=== PATIENT | female | born 1990 | race African-American/Black ===

== ENCOUNTER 2016-10-16 13:30 | Emergency (ER) | payer OTHER ==
[~2016-10-16] VITALS: Ht 162.6 cm; Wt 90.7 kg
--- NOTE | ~2016-10-16 | US106 ---
[facility] A Service of [facility] & [facility] RADIOLOGY TEXT RESULTS PATIENT: BASSEM MAYORGA LOCATION: [facility]FT[facility] : [birth year] UNIT #: [id number] AGE: [address]: Teri Gonzalez APRN SEX: F ORDER DR: [id number] [facility] [address] [place], [place] [address] [id number] MR#: [id number] Acc #: [id number] NAME: BASSEM MAYORGA. : 1990 SEX: F STUDY DATE/TIME: 10/16/2016 15:32 UNIT: TX ROOM: STUDY DESCRIPTION: US Preg Uterus Transvaginal Attending Physician: Teri Gonzalez A.P.R.N. Ordering Physician: Tristen Sawyer M.D. Primary [facility] Physician: [facility] MED[facility]AG[facility] REPORT This report is preliminary unless electronic signature is present EXAM Pelvic ultrasound, transabdominal and endovaginal HISTORY Vaginal bleeding for 2 weeks. . FINDINGS Ultrasound examination of the pelvis was performed with transabdominal and endovaginal technique. No intrauterine is identified. No endometrial thickening or endometrial fluid. 5 mm probable hypoechoic rounded fibroid in the uterine fundus. Small follicular cysts in both ovaries. There is a mixed-echogenicity, slightly pedunculated mass abutting the left ovary and measuring close to 2.6 cm in maximal dimension. This could be a hemorrhagic or proteinaceous ovarian cyst. Normal blood flow to both ovaries on color Doppler. No free fluid. The endometrium measures 6 mm in thickness. IMPRESSION 1. No evidence of intrauterine . In the setting of a positive beta HCG, ectopic cannot be excluded. Continued clinical followup and serial beta HCG is recommended. 2. No endometrial thickening or endometrial fluid. 3. No free fluid in the pelvis. 4. Blood flow is noted in both ovaries on color Doppler. There are incidental follicular cysts in both ovaries. 5. There is a mixed-echogenicity mass abutting the left ovary measuring 2.6 cm. This could be a hemorrhagic or proteinaceous ovarian cyst. 6. Incidental 5 mm fibroid in the uterine fundus. Dictated by... Gurpreet Bishop M.D. [facility] A Service of [facility] RADIOLOGY TEXT RESULTS PATIENT: BASSEM MAYORGA LOCATION: [facility] : [birth year] UNIT #: [id number] AGE: [address]: Teri Gonzalez APRN SEX: F ORDER DR: THIS IS AN ELECTRONICALLY VERIFIED REPORT Gurpreet Bishop M.D. at 10/17/2016 11:00 PM DFL/ted TD: 10/17/2016 02:20 JOB #: [id number] MEDICAL IMAGING REPORT Page 1 of 1 COPY
[2016-10-16 14:28] LABS: URINE SOURCE CLEAN CATCH
[2016-10-16 14:34] LABS: URINE APPEARANCE CLEAR; URINE BILIRUBIN NEG (NEG); URINE BLOOD 3+ (NEG); URINE COLOR YELLOW; URINE GLUCOSE NEG (NEG); URINE KETONE NEG (NEG); URINE LEUKOCYTE ESTERASE NEG (NEG); URINE NITRATE NEG (NEG); URINE PH 6.5 (5-8); URINE PROTEIN NEG (NEG); URINE SPECIFIC GRAVITY 1.031 (1.003-1.035)
[2016-10-16 14:35] LABS: U HYALINE CASTS AUWI 0-2 /[LPF]; URINE BACTERIA AUWI NEG (NEGATIVE); URINE SQUAMOUS EPITHELIAL CELL OCC /[HPF]; UWBCS1 AUWI 0-2 (0-5)
[2016-10-16 14:36] LABS: BASOPHIL% 0.6 % (0-2.5); EOSINOPHIL# 0.1 X10e3 (0-0.7); EOSINOPHIL% 2.1 % (0.0-7.0); HEMATOCRIT 41.7 % (35.0-45.0); HEMOGLOBIN 13.5 gm/dL (12.0-16.0); LYMPHOCYTE# 2.1 X10e3 (1.0-3.5); LYMPHOCYTE% 33.2 % (17.0-45.0); MEAN CELL VOLUME 88.9 FL (83-96); MEAN CORPUSCULAR HEMOGLOBIN 28.7 PG (28-34); MEAN CORPUSCULAR HGB CONC 32.3 g/dL (30-36); MEAN PLATELET VOLUME 8.5 FL (6.5-11.5); MONOCYTE# 0.4 X10e3 (0-1.0); NEUTROPHIL# 3.6 X10e3 (1.5-7.1); NEUTROPHIL% 57.1 % (40-75); PLATELET COUNT 250 X10e3 (140-420); RED BLOOD COUNT 4.69 X10e (3.90-5.30); RED CELL DISTRIBUTION WIDTH 14.3 % (11.0-15.5); WHITE BLOOD COUNT 6.4 X10e3 (4.0-10.5)
[2016-10-16 14:36] LABS: CULTURE INDICATED? NO
[2016-10-16 14:49] LABS: DIFF IND NO
[2016-10-16 14:59] LABS: BUN/CREATININE RATIO 18.75; CALCIUM SERUM 9.1 mg/dL (8.4-10.2); CREATININE SERUM 0.8 mg/dL (0.6-1.4); POTASSIUM 4.1 mmol/L (3.5-5.1)
[2016-10-18 23:48] LABS: CHLAMYDIA TRACH Not Detected (Not Detected); N GONOR Not Detected (Not Detected)
== END 2016-10-16 16:56 | disposition home or self-care (01) ==
LOC: CFTX 13:30 → CED 13:30 → CFTX 15:04
PROVIDERS: Nurse Practitioner
DX: O20.0 Threatened abortion (principal); O23.591 Infection of other part of genital tract in pregnancy, first trimester; N76.0 Acute vaginitis; J45.909 Unspecified asthma, uncomplicated; O99.331 Smoking (tobacco) complicating pregnancy, first trimester; Z88.8 Allergy status to other drugs, medicaments and biological substances
CPT/HCPCS: 36415; 76817; 80048; 81003; 84702; 84703; 85025; 87491; 87591; 87808; 87905; 99284